=== PATIENT | male | born 1995 | race Caucasian/White ===

== ENCOUNTER 2024-01-13 16:13 | Emergency (ER) | payer SELFPAY ==
[2024-01-13 16:19] VITALS: BP 182/108; PULSE 88; TEMP 37.4; O2SAT 98; BMI 32.6
--- NOTE | 2024-01-13 16:39 | XR_ITS ---
[address] [address] Patient Name: MARIANNA ARAIZA MRN: [id number] date: 1995 Sex: M Assigned Patient Location: ER Current Patient Location: ER Accession/Order Number: [id number] Exam Date: 01/13/2024 17:35 Report Date: 01/13/2024 18:11 At the request of: SAM ABAD Procedure: XR shoulder RT min 2V Exam: Radiographs: XR shoulder RT min 2V Reason for exam: fall Comparison: None XR/XR shoulder RT min 2V IMPRESSION: Unremarkable right shoulder radiographs. Electronically authenticated by: ISAMAR COOK Date: 01/13/2024 18:11
--- NOTE | 2024-01-13 16:45 | ED_ITS ---
HPI HPI - General Adult General Chief complaint: Nausea/Vomiting/Diarrhea Stated complaint: DIARRHEA Time Seen by Provider: 01/13/24 16:15 Source: patient Mode of arrival: walk-in History of Present Illness HPI narrative: Patient presents to ED complaining of diarrhea for the past few days. He also told me that he injured his right shoulder about a year ago and he never got it looked at. He said sometimes the right shoulder clicks and pops and he cannot do as much with that so he wanted to know if he can get an x-ray or somebody to look at his shoulder. He denies any severe abdominal pain no vomiting no f stefano. He just moved up from [place] and has not established any doctor here. He is alert and oriented in no acute distress. He does report that he feels anxious about being here because he does not normally go to a doctor. Related Data Allergies Allergy/AdvReac Type Severity Reaction Status Date / Time No Known Drug Allergies Allergy Verified 01/13/24 16:23 Opioid HPI Opioid Management Most Recent Opioid Data: No Data to Display Review of Systems ROS Status of ROS 10 or more systems reviewed and unremark able except as noted in history and below Exam Narrative Exam Narrative: Time Seen: [] Vital Signs: [Per nurse's notes.] General: [Alert] Skin: [Warm, dry, no rash.] Head: [Normocephalic, atraumatic.] Neck: [Supple, trachea midline.] Eye: [Pupils are equal, round and reactive to light, extraocular movements are intact, normal conjunctiva.] Ears, nose, mouth and throat: oral mucosa moist. Cardiovascular: [Regular rate and rhythm, no murmur.] Respiratory: [Lungs are clear to auscultation, respirations are non-labored, breath sounds are equal.] Chest wall: [No tenderness, no deformity.] Gastrointestinal: [Soft, nontender, non distended, normal bowel sounds.] MSK: 5 out of 5 muscle strength x 4 extremities no calf pain or edema. No deformity or tenderness to the right shoulder. Normal flexion extension normal balloon dipper strength normal distal pulses and sensation Lymphatics: [No lymphadenopathy.] Psychiatric: [Cooperative, appropriate mood & affect.] Neurological: [Alert and oriented to person, place, time, and situation, no focal neurological deficit observed.] Constitutional Vital Signs, click to edit/add: Last Vital Signs Temp 99.3 F 01/13/24 16:19 Pulse 88 01/13/24 16:19 Resp 16 01/13/24 16:19 BP 182/108 H 01/13/24 16:19 Pulse Ox 98 01/13/24 16:19 O2 Del Method Room Air 01/13/24 16:19 Course Vital Signs Vital signs: Vital Signs Temperature 99.3 F 01/13/24 16:19 Pulse Rate 88 01/13/24 16:19 Respiratory Rate 16 01/13/24 16:19 Blood Pressure 182/108 H 01/13/24 16:19 Pulse Oximetry 98 01/13/24 16:19 Oxygen Delivery Method Room Air 01/13/24 16:19 Temperature 99.3 F 01/13/24 16:19 Pulse Rate 88 01/13/24 16:19 Respiratory Rate 16 01/13/24 16:19 Blood Pressure 182/108 H 01/13/24 16:19 Pulse Oximetry 98 01/13/24 16:19 Oxygen Delivery Method Room Air 01/13/24 16:19 Discharge Plan Discharge Chief Complaint: Nausea/Vomiting/Diarrhea Print Language: Belarusian Referrals: Physician,Non-Staff, MD [Primary Care Provider] - 1 week
[2024-01-13] MEDS: 0.9 % SODIUM CHLORIDE 1,000 ML 1000 ML IV (16:57)
[2024-01-13 17:00] VITALS: BP 190/92; PULSE 106; O2SAT 99
[2024-01-13 17:07] LABS: Basophils Absolute Auto 0.1 10^3/uL (0.0-0.1); Basophils Percent Auto 0.8 % (0.2-2.0); Eosinophils Absolute Auto 0.4 10^3/uL (0.0-0.7); Eosinophils Percent Auto 5.8 % (0.9-7.0); Hematocrit 42.1 % (42.0-54.0); Hemoglobin 14.9 g/dL (14.0-18.0); Immature Granulocytes Abs Auto 0.02 10^3/uL (0.00-0.03); Immature Granulocytes Pct Auto 0.3 % (0.0-0.5); Lymphocytes Absolute Auto 2.1 10^3/uL (1.2-3.8); Lymphocytes Percent Auto 33.2 % (20.5-60.0); Mean Corpuscular HGB Conc 35.4 g/dL (29.9-35.2); Mean Corpuscular Hemoglobin 30.4 pg (25.9-34.0); Mean Corpuscular Volume 85.9 fL (80.0-94.0); Mean Platelet Volume 10.3 fL (9.5-13.5); Monocytes Absolute Auto 0.7 10^3/uL (0.3-0.8); Monocytes Percent Auto 10.9 % (1.7-12.0); Neutrophils Absolute Auto 3.1 10^3/uL (1.4-6.5); Platelet Count 262 10^3/uL (150-450); Red Cell Distribution Width 12.6 % (11.0-15.0); White Blood Count 6.3 10^3/uL (4.0-11.0)
[2024-01-13 17:16] LABS: Alanine Aminotransferase 30 U/L (16-63); Albumin Globulin Ratio 1.1; Alkaline Phosphatase 60 U/L (46-116); Anion Gap 11.5; Aspartate Amino Transferase 27 U/L (15-37); Bilirubin Total 0.4 mg/dL (0.2-1.0); Calcium 8.7 mg/dL (8.5-10.1); Carbon Dioxide 29.7 mmol/L (21.0-32.0); Chloride 102 mmol/L (98-107); Estimated GFR (African America >60 (>=60); Estimated GFR (Non-African Ame >60 (>=60); Globulin 3.8 g/dL; Glucose 94 mg/dL (74-106); Potassium 4.2 mmol/L (3.5-5.1); Sodium 139 mmol/L (136-145); Total Protein 7.8 g/dL (6.4-8.2)
[2024-01-13 17:58] VITALS: PULSE 102; O2SAT 98
[2024-01-13 18:07] VITALS: BP 168/94
--- NOTE | 2024-01-13 18:22 | ED.NAVMDI1 ---
HPI - Nausea/Vomiting/Diarrhea General Chief complaint: Nausea/Vomiting/Diarrhea Stated complaint: DIARRHEA Time Seen by Provider: 01/13/24 16:15 Source: patient Mode of arrival: walk-in History of Present Illness HPI Narrative: 28-year-old male presented to the emergency department for diarrhea. The patient was initially seen by Dr. Carranza and signed out to me after discussing the case with her thoroughly. Please see her full history and physical exam. Related Data Allergies Allergy/AdvReac Type Severity Reaction Status Date / Time No Known Drug Allergies Allergy Verified 01/13/24 16:23 Exam Constitutional Vital Signs, click to edit/add: Last Vital Signs Temp 99.3 F 01/13/24 16:19 Pulse 102 H 01/13/24 17:58 Resp 18 01/13/24 17:58 BP 168/94 H 01/13/24 18:07 Pulse Ox 98 01/13/24 17:58 O2 Del Method Room Air 01/13/24 17:58 Course Vital Signs Vital signs: Vital Signs Temperature 99.3 F 01/13/24 16:19 Pulse Rate 88 01/13/24 16:19 Respiratory Rate 16 01/13/24 16:19 Blood Pressure 182/108 H 01/13/24 16:19 Pulse Oximetry 98 01/13/24 16:19 Oxygen Delivery Method Room Air 01/13/24 16:19 Temperature 99.3 F 01/13/24 16:19 Pulse Rate 102 H 01/13/24 17:58 Respiratory Rate 18 01/13/24 17:58 Blood Pressure 168/94 H 01/13/24 18:07 Pulse Oximetry 98 01/13/24 17:58 Oxygen Delivery Method Room Air 01/13/24 17:58 MDM - Nausea/Vomiting/Diarrhea MDM Narrative Medical decision making narrative: Blood work is normal. His blood pressure was elevated but has improved and he is referred to PCP. He states that he is his blood pressure was high because he was nervous when he got here. He feels better now. He is able to be discharged home. X-ray of the shoulder also on my interpretation shows no acute findings. He had hurt it about a year ago but it has been getting progressively better. Findings are discussed with the patient. Differential Diagnosis Differential diagnosis: Likely traveler's diarrhea, food poisoning, gastroenteritis and dehydration Lab Data Attestation: I reviewed the patient's lab results. Labs: Lab Results 01/13/24 Range/Units 16:20 WBC 6.3 (4.0-11.0) 10^3/uL RBC 4.90 (4.70-6.10) 10^6/uL Hgb 14.9 (14.0-18.0) g/dL Hct 42.1 (42.0-54.0) % MCV 85.9 (80.0-94.0) fL MCH 30.4 (25.9-34.0) pg MCHC 35.4 H (29.9-35.2) g/dL RDW 12.6 (11.0-15.0) % Plt Count 262 (150-450) 10^3/uL MPV 10.3 (9.5-13.5) fL Neut % (Auto) 49.0 (43.0-75.0) % Lymph % (Auto) 33.2 (20.5-60.0) % Atkinson % (Auto) 10.9 (1.7-12.0) % Eos % (Auto) 5.8 (0.9-7.0) % Baso % (Auto) 0.8 (0.2-2.0) % Neut # (Auto) 3.1 (1.4-6.5) 10^3/uL Lymph # (Auto) 2.1 (1.2-3.8) 10^3/uL Atkinson # (Auto) 0.7 (0.3-0.8) 10^3/uL Eos # (Auto) 0.4 (0.0-0.7) 10^3/uL Baso # (Auto) 0.1 (0.0-0.1) 10^3/uL Abs Immat Gran (auto) 0.02 (0.00-0.03) 10^3/uL Imm/Tot Granulo (auto) 0.3 (0.0-0.5) % Sodium 139 (136-145) mmol/L Potassium 4.2 (3.5-5.1) mmol/L Chloride 102 (98-107) mmol/L Carbon Dioxide 29.7 (21.0-32.0) mmol/L Anion Gap 11.5 BUN 18.0 (7.0-18.0) mg/dL Creatinine 1.00 (0.70-1.30) mg/dL Est GFR ( Amer) >60 (>=60) Est GFR (Non-Af Amer) >60 (>=60) BUN/Creatinine Ratio 18.0 Glucose 94 (74-106) mg/dL Calcium 8.7 (8.5-10.1) mg/dL Total Bilirubin 0.4 (0.2-1.0) mg/dL AST 27 (15-37) U/L ALT 30 (16-63) U/L Alkaline Phosphatase 60 (46-116) U/L Total Protein 7.8 (6.4-8.2) g/dL Albumin 4.0 (3.4-5.0) g/dL Globulin 3.8 g/dL Albumin/Globulin Ratio 1.1 Imaging Data Shoulder x-ray: Radiologist's impression: ITS Impressions Shoulder X-Ray 01/13/24 16:39 IMPRESSION: Unremarkable right shoulder radiographs. Electronically authenticated by: ISAMAR COOK Date: 01/13/2024 18:11 Discharge Plan Discharge Stand Alone Forms: Portal Instructions Chief Complaint: Nausea/Vomiting/Diarrhea Clinical Impression: Diarrhea Patient Disposition: Home, Self-Care Time of Disposition Decision: 18:22 Condition: Good Mode of Transportation: Private Vehicle Print Language: Chadian Instructions: Acute Diarrhea (ED) Additional Instructions: Follow-up with PCP for blood pressure recheck. List provided Referrals: Physician,Non-Staff, MD [Primary Care Provider] - 1 week
== END 2024-01-13 18:29 | disposition home or self-care (01) ==
PROVIDERS: Emergency Medicine; Emergency Provider Emergency Medicine
DX: R19.7 Diarrhea, unspecified (principal)
CPT/HCPCS: 36415; 73030; 80053; 85025; 96360; 99284